=== PATIENT | female | born 1985 | race Caucasian/White ===

== ENCOUNTER 2024-06-21 20:42 | Emergency (ER) | payer MEDICAID, OTHER ==
[~2024-06-21] VITALS: Ht 156.2 cm; Wt 69.2 kg
[2024-06-21 21:26] VITALS: O2SAT 99
[2024-06-21 21:57] LABS: HEMATOCRIT. 36.5 % (36.0-48.0); LYMPHOCYTES % 14.2 % (20.0-50.0); MEAN CORPUSCULAR HEMOGLOBIN 27.2 pg (28.0-32.0); MEAN CORPUSCULAR HGB CONC 32.9 g/dL (31.0-37.0); MEAN CORPUSCULAR VOLUME 82.5 fL (81.0-99.0); MEAN PLATELET VOLUME 7.8 fl (7.4-10.4); MONOCYTES % 4.1 % (2.0-8.0); NEUTROPHILS % 81.7 % (40.0-76.0); PLATELET 240 x1000/uL (130-400); RED BLOOD CELL COUNT 4.43 mill/uL (4.2-5.4); RED CELL DISTRIBUTION WIDTH 14.7 % (11.6-14.6); WHITE BLOOD COUNT 4.6 x1000/uL (4.5-11.0)
[2024-06-21 22:01] LABS: CHLORIDE 107 mEq/L (98-107); POTASSIUM 4.1 mEq/L (3.5-5.1); SODIUM 142 mEq/L (136-145)
[2024-06-21 22:02] LABS: CALCIUM 8.9 mg/dL (8.7-10.4); CARBON DIOXIDE 23 mEq/L (21-32)
[2024-06-21 22:07] LABS: CREATININE 0.7 mg/dL (0.6-1.0); GLUCOSE 155 mg/dL (70-105); UREA NITROGEN BLOOD 18 mg/dL (9-23)
[2024-06-21 22:27] LABS: TROPONIN I HIGH SENSITIVITY < 4 ng/L (3.0-34)
[2024-06-22] MEDS ORDERED: KETOROLAC 30MG/ML VIAL IM STA (00:29)
[2024-06-22 00:50] VITALS: BP 119/76; PULSE 76; RESP 18; TEMP 36.66960; O2SAT 100
[2024-06-22] MEDS: IBUPROFEN 800MG TABLET PO ONE (00:55)
== END 2024-06-22 00:57 | disposition home or self-care (01) ==
LOC: ER 20:42
DX: M94.0 Chondrocostal junction syndrome [Tietze] (principal); J45.909 Unspecified asthma, uncomplicated
CPT/HCPCS: 36415; 71045; 80048; 84484; 85025; 99284